=== PATIENT | female | born 1960 ===

== ENCOUNTER → 2021-07-08 | Outpatient (CLI) | payer OTHER | END | disposition home or self-care (01) | LOC: PPH VACUNA 07:00 | PROVIDERS: ATTEND Emergency Medicine Pediatric Emergency Medicine | DX: Z23 Encounter for immunization (principal) ==

== ENCOUNTER 2022-01-07 08:51 | Outpatient (CLI) | payer OTHER | END 2022-01-07 09:01 | disposition home or self-care (01) | LOC: PPH VACUNA 08:51 | PROVIDERS: ATTEND Emergency Medicine Pediatric Emergency Medicine | DX: Z23 Encounter for immunization (principal) ==

== ENCOUNTER 2022-07-13 14:50 | Outpatient (CLI) | payer OTHER | END 2022-07-13 15:00 | disposition home or self-care (01) | LOC: PPH VACUNA 14:50 | PROVIDERS: ATTEND Emergency Medicine Pediatric Emergency Medicine | DX: Z23 Encounter for immunization (principal) ==

== ENCOUNTER 2024-11-09 11:43 | Outpatient (CLI) | payer OTHER | END 2024-11-09 11:48 | disposition home or self-care (01) | LOC: RAD 11:43 | PROVIDERS: ATTEND Physical Medicine & Rehabilitation Hospice and Palliative Medicine | DX: M41.9 Scoliosis, unspecified (principal) ==